=== PATIENT | female | born 1980 | race Caucasian/White ===

== ENCOUNTER 2018-06-27 10:32 | Emergency (ER) | payer OTHER ==
[~2018-06-27] VITALS: Ht 162.6 cm; Wt 68.0 kg
[2018-06-27 11:10] VITALS: BP 124/88
[2018-06-27] MEDS ORDERED: ACETAMINOPHEN 325 MG TABLET. PO ONE (12:00)
--- NOTE | 2018-06-27 12:39 | RAD ---
EXAM: 3 views right ankle DATE: 06/27/2018 11:48 AM INDICATION: Right ankle injury COMPARISON: No Prior FINDINGS: No evidence for acute fracture or dislocation. Ankle mortise is congruent. Talar dome is intact. IMPRESSION: No evidence of acute fracture or dislocation. Electronically signed by: Diego Strickland MD (06/27/2018 12:36 PM) [id number]
--- NOTE | 2018-06-27 12:49 | PHYS DOC ---
Past Medical History Past Medical History: No Pertinent History Past Surgical History: Lumbar Laminectomy Alcohol Use: None Drug Use: None Adult General Chief Complaint Chief Complaint: ANKLE PROBLEM HPI HPI 38 y/o female presents to ER for c/o rt ankle injury last night. She reported she twisted her rt ankle and today has bruising and ongoing pain outer side of her ankle. She reports she has been ambulatory and denies any other injury. She reports she took ibuprofen earlier today and has been using ice packs. Review of Systems Review of Systems Musculoskeletal:Reports rt ankle pain w/swelling and bruising to outer ankle Integument: Denies open wounds Neurologic: Denies focal weakness or sensory changes [] All other systems were reviewed and found to be within normal limits, except as documented in this note. Current Medications Current Medications Current Medications Medications (Trade) Dose Ordered Sig/Debbie Start Time Stop Time Status Last Admin Dose Admin Acetaminophen (Tylenol) 650 mg 1X ONCE 06/27/18 12:00 06/27/18 12:01 DC 06/27/18 12:09 650 MG Allergies Allergies Allergies Coded Allergies Type Severity Reaction Last Updated Verified Iodinated Contrast- Oral and IV Dye Allergy Intermediate 06/27/18 Yes sulfamethoxazole Allergy Intermediate 06/27/18 Yes trimethoprim Allergy Intermediate 06/27/18 Yes Physical Exam Physical Exam Constitutional: Well developed, well nourished, no acute distress, non-toxic ap pearance. [] HENT: Normocephalic, atraumatic, oropharynx moist, nose normal. [] Eyes: Pupils equal, conjunctiva normal, no discharge. [] Neck: Normal range of motion, supple Cardiovascular:Heart rate regular Lungs & Thorax: Resp. equal/nonlabored Skin: Warm, dry Extremities: No tenderness lt LE- 2+ bilat. dorsalis pedis/posterior tibial; tender on palp. lt lateral malleolus with swelling/ecchymosis- decreased ROM w/pt reporting increased pain w/movements. Lt foot, medial malleolus and calcaneus nontender. No calf tenderness. No cyanosis, no clubbing Neurologic: Alert and oriented X 3, normal motor function, normal sensory function, no focal deficits noted. [] Psychologic: Affect normal, judgement normal, mood normal. [] Current Patient Data Vital Signs Vital Signs Date Time Temp Pulse Resp B/P (MAP) Pulse Ox O2 Delivery O2 Flow Rate FiO2 06/27/18 11:10 97.8 88 16 124/88 (100) 99 Room Air 97.8 EKG EKG [] Radiology/Procedures Radiology/Procedures PROCEDURE: ANKLE RIGHT 3V EXAM: 3 views right ankle DATE: 06/27/2018 11:48 AM INDICATION: Right ankle injury COMPARISON: No Prior FINDINGS: No evidence for acute fracture or dislocation. Ankle mortise is congruent. Talar dome is intact. IMPRESSION: No evidence of acute fracture or dislocation. Electronically signed by: Diego Strickland MD (06/27/2018 12:36 PM) [id number] DICTATED and SIGNED BY: DIEGO STRICKLAND MD DATE: 06/27/18 1236 Course & Med Decision Making Course & Med Decision Making Pertinent Imaging studies reviewed. (See chart for details) Pt was evaluated in the ER for c/o rt ankle injury last night. She had xray obtained and was provided with dose of tylenol. Xray with no acute findings- this was discussed with pt. Discussed plans for moy wrap and air splint to rt ankle and pt to f/u with orthop. doctor for re-eval and further care if symptoms persist. RICE acronym discussed. Pt remains PMS intact in rt lower extremity. Education provided on s&s to return to ER for and d/c instructions were discussed. RN reported after moy wrap and air splint application pt reported pain continued and requested crutches- those were provided while in the ER. On re-eval. pt remained PMS intact after splint application and was up in room with use of crutches. Dragon Disclaimer Dragon Disclaimer This electronic medical record was generated, in whole or in part, using a voice recognition dictation system. Departure Departure Impression: Primary Impression: Right ankle injury Disposition: 01 HOME, SELF-CARE Referrals: NO PCP (PCP) MICHAEL AGUILAR II, MD Patient Instructions: Ankle Pain, Elastic Bandage and RICE Additional Instructions: Ice pack every 3-4 hours for 20-30 minutes at a time to right ankle. Tylenol and/or ibuprofen as directed on container as needed for pain. If symptoms persist follow-up with orthopedic doctor for re-evaluation and further care. KATIE ISSA [employer] June 27, 2018 12:49
== END 2018-06-27 12:59 | disposition home or self-care (01) ==
LOC: ER 10:32
DX: S99.911A Unspecified injury of right ankle, initial encounter (principal); Z88.1 Allergy status to other antibiotic agents; Z88.2 Allergy status to sulfonamides; Z91.041 Radiographic dye allergy status; X50.0XXA Overexertion from strenuous movement or load, initial encounter; Y93.89 Activity, other specified; Y92.89 Other specified places as the place of occurrence of the external cause; Y99.8 Other external cause status
CPT/HCPCS: 73610; 99284; L4350

== ENCOUNTER 2020-06-30 19:01 | Emergency (ER) | payer BC, OTHER | END 2020-06-30 20:08 | disposition left against medical advice (07) | LOC: ER 19:01 | DX: R10.9 Unspecified abdominal pain (principal); R11.0 Nausea; Z53.21 Procedure and treatment not carried out due to patient leaving prior to being seen by health care provider ==

== ENCOUNTER 2021-06-08 12:14 | Emergency (ER) | payer OTHER ==
[~2021-06-08] VITALS: Ht 162.6 cm; Wt 79.5 kg
[2021-06-08 12:15] VITALS: BP 175/77
[2021-06-08] MEDS ORDERED: METH-561 PO (12:49)
--- NOTE | 2021-06-08 12:55 | PHYS DOC ---
Past Medical History Past Medical History: No Pertinent History Past Surgical History: Lumbar Laminectomy, Tubal ligation Smoking Status: Current Some Day Smoker Alcohol Use: None Drug Use: None General Adult EDM: Chief Complaint: SHOULDER INJURY HPI: HPI: Patient is a 41 year old female who presents with 4-day history of left shoulder pain. Patient states that she woke up from sleep with left shoulder pain. She has been trying massages as well as some naproxen. Patient states that she otherwise feels well besides left shoulder pain. Massages have been he lping, naproxen also helps. She has not tried Tylenol or muscle relaxers. She has not tried heat as well. Review of Systems: Review of Systems: Constitutional: Denies fever or chills. [] Eyes: Denies change in visual acuity. [] HENT: Denies nasal congestion or sore throat. [] Respiratory: Denies cough or shortness of breath. [] Cardiovascular: Denies chest pain or edema. [] GI: Denies abdominal pain, nausea, vomiting, bloody stools or diarrhea. [] : Denies dysuria. [] Musculoskeletal: Positive left shoulder pain [] Integument: Denies rash. [] Neurologic: Denies headache, focal weakness or sensory changes. [] Endocrine: Denies polyuria or polydipsia. [] Lymphatic: Denies swollen glands. [] Psychiatric: Denies depression or anxiety. [] Heart Score: C/O Chest Pain: No Risk Factors: Risk Factors: DM, Current or recent (<one month) smoker, HTN, HLP, family history of CAD, obesity. Risk Scores: Score 0 - 3: 2.5% MACE over next 6 weeks - Discharge Home Score 4 - 6: 20.3% MACE over next 6 weeks - Admit for Clinical Observation Score 7 - 10: 72.7% MACE over next 6 weeks - Early Invasive Strategies Allergies: Allergies: Allergies Coded Allergies Type Severity Reaction Last Updated Verified Iodinated Contrast Media Allergy Intermediate 06/27/18 Yes sulfamethoxazole Allergy Intermediate 06/27/18 Yes trimethoprim Allergy Intermediate 06/27/18 Yes Physical Exam: PE: Constitutional: Well developed, well nourished, no acute distress, non-toxic appearance. [] HENT: Normocephalic, atraumatic, bilateral external ears normal, oropharynx moist, no oral exudates, nose normal. [] Eyes: PERRLA, EOMI, conjunctiva normal, no discharge. [] Neck: Normal range of motion, no tenderness, supple, no stridor. [] Cardiovascular:Heart rate regular rhythm, no murmur [] Lungs & Thorax: Bilateral breath sounds clear to auscultation [] Abdomen: Bowel sounds normal, soft, no tenderness, no masses, no pulsatile masses. [] Skin: Warm, dry, no erythema, no rash. [] Back: Positive tenderness to left superior lateral trapezius [] Extremities: No tenderness, no cyanosis, no clubbing, ROM intact, no edema. [] Neurologic: Alert and oriented X 3, normal motor function, normal sensory function, no focal deficits noted. [] Psychologic: Affect normal, judgement normal, mood normal. [] Current Patient Data: Vital Signs: Vital Signs Date Time Temp Pulse Resp B/P (MAP) Pulse Ox O2 Delivery O2 Flow Rate FiO2 06/08/21 12:15 97.9 97 18 175/77 (109) 100 Room Air 97.9 EKG: EKG: [] Radiology/Procedures: Radiology/Procedures: [] Impression: 41-year-old female with left trapezius muscle strain Course & Med Decision Making: Course & Med Decision Making Pertinent Labs and Imaging studies reviewed. (See chart for details) Patient woke up with left muscle strain. Massages and NSAIDs have been helping. Patient has meloxicam at home but has not tried it. I advised her to take 15 mg daily. She will also be given a prescription for Robaxin. She was instructed to only take it at night when she is ready to sleep. She was encouraged to follow-up with her primary care physician as well as use warm packs on her left shoulder. She was discharged in stable and good condition. Patient understood instructions. Patient will follow up. Leanne Disclaimer: Leanne Disclaimer: This electronic medical record was generated, in whole or in part, using a voice recognition dictation system. Departure Departure Impression: Primary Impression: Left shoulder strain Disposition: HOME / SELF CARE / HOMELESS Condition: GOOD Patient Instructions: Muscle Strain, [id number] Additional Instructions: You may take up to 15 mg of meloxicam at home per day. You should take methocarbamol, Robaxin, when you are ready to sleep. It may make you dizzy and sleepy. You may also put warm compresses on your left shoulder. Follow-up with your primary care physician if this persists more than 2 weeks. Scripts Methocarbamol (METHOCARBAMOL) 500 Mg Tablet 500 MG PO QID PRN for PAIN, #20 TAB Prov: MELVA SHAH MD 06/08/21 MELVA SHAH MD Jun 08, 2021 12:55
== END 2021-06-08 13:10 | disposition home or self-care (01) ==
LOC: ER 12:14
DX: S46.912A Strain of unspecified muscle, fascia and tendon at shoulder and upper arm level, left arm, initial encounter (principal); F17.200 Nicotine dependence, unspecified, uncomplicated; Z88.1 Allergy status to other antibiotic agents; Z88.2 Allergy status to sulfonamides; Z91.041 Radiographic dye allergy status; X50.9XXA Other and unspecified overexertion or strenuous movements or postures, initial encounter; Y93.89 Activity, other specified; Y92.89 Other specified places as the place of occurrence of the external cause; Y99.8 Other external cause status
CPT/HCPCS: 99283